=== PATIENT | male | born 1995 | race Caucasian/White ===

== ENCOUNTER 2021-04-05 11:42 | Emergency (ER) | payer BC ==
[~2021-04-05] VITALS: Ht 157 cm; Wt 63.5 kg
[2021-04-05 11:43] VITALS: BP 123/85
[2021-04-05 12:07] LABS: BILIRUBIN,URINE NEGATIVE (NEGATIVE); CLARITY,URINE CLEAR; COLOR,URINE YELLOW; GLUCOSE, URINE (UA) NEGATIVE (NEGATIVE); KETONES,URINE NEGATIVE (NEGATIVE); LEUKOCYTE ESTERASE ,URINE NEGATIVE (NEGATIVE); NITRITE,URINE NEGATIVE (NEGATIVE); PH,URINE 7.5 (5-9); PROTEIN,URINE NEGATIVE (NEGATIVE)
--- NOTE | 2021-04-05 12:16 | ED Psychosocial ---
General Chief Complaint: Psych/Social Disorder Stated Complaint: ANXIETY Nursing Triage Note: Pt to ED via EMS for anxiety. Pt reports being discharged from [facility] yesterday. Pt reports anxiety worsened while there. Pt denies being a threat to self or others. Source: patient Exam Limitations: no limitations History of Present Illness Date Seen by Provider: April 05, 2021 Time Seen by Provider: 11:43 Initial Comments This is a well appearing 25 yo male who presented via [facility] with c/o of anxiety due to concerns he may be experiencing an adverse reaction to new medication. States that he has been at [facility] for the past week and was released yesterday. He was placed on Olanzapine TID and Atarax PRN. He believes that he is having an adverse reaction to the olanzapine because he "feels worse" mentally. States that prior to entering the facility he was taking Prozac and was taken off of it during his treatment.However, he believe he would feel much better with Prozac over his new medication. He does admit that his Atarax is helpful with his anxiety, however today he experienced a severe episode. States that he is staying with his grandparents and there is quite a bit of discord within the family at this time causing him to have increased stress. Denies suicidal or homicidal ideation. He was to follow-up with his primary care provider today, however he presented to the ER instead. He currently has no physical complaints. Allergies and Home Medications Allergies Coded Allergies: No Known Drug Allergies (Unverified Allergy, Mild, 11/11/09) Home Medications Fluoxetine HCl 20 Mg Capsule, 20 MG PO DAILY Prescribed by: ELIZABETH PENA on 04/05/21 1248 Patient Home Medication List Home Medication List Reviewed: Yes Review of Systems Constitutional: no symptoms reported EENTM: no symptoms reported Respiratory: no symptoms reported Cardiovascular: no symptoms reported Gastrointestinal: no symptoms reported Genitourinary: no symptoms reported Musculoskeletal: no symptoms reported Skin: no symptoms reported Psychiatric/Neurological: See HPI Past Gxfbejf-Ihkrnw-Qivvsy Hx Patient Social History Alcohol Use: Denies Use Type Used: Smokeless Tobacco 2nd Hand Smoke Exposure: No Recent Infectious Disease Expo: No Recent Hopitalizations: No (EARS TUBES AGE 3, ) Past Medical History Surgeries: Yes (PENIS REPAIR, wisdom teeth) Appendectomy, Ear Surgery Respiratory: No Cardiac: No Neurological: No Reproductive Disorders: No Genitourinary: No Gastrointestinal: No Musculoskeletal: No Endocrine: No Cancer: No Psychosocial: Yes ADD/ADHD, Anxiety, Bipolar, Depression Blood Disorders: No Physical Exam Vital Signs - First Documented 04/05/21 11:43 Temp 36.3 Pulse 84 Resp 25 B/P (MAP) 123/85 (98) Pulse Ox 100 O2 Delivery Room Air Capillary Refill : Less Than 3 Seconds Height, Weight, BMI Height: 5'2" Weight: 120lbs. oz. [id number]; 25.00 BMI Method: General Appearance: WD/WN, no apparent distress HEENT: PERRL/EOMI, normal ENT inspection, pharynx normal Neck: full range of motion, normal inspection Respiratory: lungs clear, normal breath sounds Cardiovascular: regular rate, rhythm, no murmur Gastrointestinal: normal bowel sounds, non tender, soft Neurologic/Psychiatric: no motor/sensory deficits, alert, normal mood/affect, oriented x 3 Appearance/Memory: appropriate appearance, appropriate insight, neat, no memory impairment Behavior/Eye Contact: cooperative, good eye contact, normal speech Thoughts/Hallucinations: normal thought pattern, no apparent hallucination; No delusions, No flight of ideas Skin: normal color, warm/dry Progress/Results/Core Measures Results/Orders Lab Results Laboratory Tests Test 04/05/21 12:00 04/05/21 12:30 Range/Units Urine Color YELLOW Urine Clarity CLEAR Urine pH 7.5 5-9 Urine Specific [place] 1.010 L 1.016-1.022 Urine Protein NEGATIVE NEGATIVE Urine Glucose (UA) NEGATIVE NEGATIVE Urine Ketones NEGATIVE NEGATIVE Urine Nitrite NEGATIVE NEGATIVE Urine Bilirubin NEGATIVE NEGATIVE Urine Urobilinogen 0.2 < = 1.0 MG/DL Urine Leukocyte Esterase NEGATIVE NEGATIVE Urine RBC (Auto) NEGATIVE NEGATIVE Urine RBC NONE /HPF Urine WBC NONE /HPF Urine Squamous Epithelial Cells RARE /HPF Urine Crystals NONE /LPF Urine Bacteria NEGATIVE /HPF Urine Casts NONE /LPF Urine Mucus NEGATIVE /LPF Urine Culture Indicated NO Urine Opiates Screen NEGATIVE NEGATIVE Urine Oxycodone Screen NEGATIVE NEGATIVE Urine Methadone Screen NEGATIVE NEGATIVE Urine Propoxyphene Screen NEGATIVE NEGATIVE Urine Barbiturates Screen NEGATIVE NEGATIVE Ur Tricyclic Antidepressants Screen NEGATIVE NEGATIVE Urine Phencyclidine Screen NEGATIVE NEGATIVE Urine Amphetamines Screen NEGATIVE NEGATIVE Urine Methamphetamines Screen NEGATIVE NEGATIVE Urine Benzodiazepines Screen NEGATIVE NEGATIVE Urine Cocaine Screen NEGATIVE NEGATIVE Urine Cannabinoids Screen NEGATIVE NEGATIVE Serum Alcohol < 10 <10 MG/DL My Orders Orders - ELIZABETH PENA DREDGE CAPTAIN Ua Culture If Indicated (04/05/21 11:55) Drug Screen Stat (Urine) (04/05/21 11:55) Alcohol (04/05/21 11:55) Vital Signs/I&O Blood Pressure Mean: 98 Progress Progress Note : Progress Note Patient examined and in no acute distress. He is sitting up, talking appropriately with staff. Does not appear overly anxious. Discussed allowing me to contact Santiago as he was just discharged yesterday to review medication adjustments, he is agreeable to this. Called [facility] unit and spoke to Dr. Moore. States that patient was diagnosed with bipolar and was noted to have increased anxiety with quite a bit of stressors at home. States that adding Prozac to his current medication regimen would be appropriate and likely help him with his current symptoms. Additionally, I called his primary care provider office at [facility] in [place] to reschedule his appointment. However his had already rescheduled the appointment for him and is within the next 2 weeks. Discussed with him that I would be willing to write him a prescription for Prozac-2 weeks worth until he can follow-up with his primary care provider. He is agreeable with this plan. Reviewed discharge plan of care and he is agreeable with plan. At time of discharge no questions or concerns voiced. States that he is feeling much improved after getting help adjusting his medications. Departure Impression Primary Impression: Anxiety Disposition: 01 HOME, SELF-CARE Condition: Improved Departure-Patient Inst. Decision time for Depature: 12:43 Referrals: DAVID HOU DO (PCP/Family) Primary Care Physician Patient Instructions: Anxiety, Adult (DC) Add. Discharge Instructions: Plan: 1. Follow up with Dr. Parada as scheduled. 2. Take Prozac 20mg per day. 3. Continue your Atarax TID as needed for anxiety. 4. Return for any new or worsening symptoms. All discharge instructions reviewed with patient and/or family. Voiced understanding. Scripts Fluoxetine HCl (Prozac) 20 Mg Capsule 20 MG PO DAILY for 14 Days, #14 CAP 0 Refills Prov: ELIZABETH PENA DREDGE CAPTAIN 04/05/21 ELIZABETH PENA DREDGE CAPTAIN April 05, 2021 12:16
[2021-04-05 12:18] LABS: AMPHETAMINE SCREEN, URINE NEGATIVE (NEGATIVE); BARBITURATE SCREEN URINE NEGATIVE (NEGATIVE); BENZODIAZEPINES SCREEN URINE NEGATIVE (NEGATIVE); CANNABINOID SCREEN, URINE NEGATIVE (NEGATIVE); COCAINE SCREEN URINE NEGATIVE (NEGATIVE); METHADONE STAT NEGATIVE (NEGATIVE); METHAMPHETAMINE SCREEN URINE S NEGATIVE (NEGATIVE); OPIATE SCREEN URINE NEGATIVE (NEGATIVE); OXYCODONE STAT NEGATIVE (NEGATIVE); PROPOXYPHENE STAT NEGATIVE (NEGATIVE); TRICYCLIC ANTIDEPRESSANTS SCRE NEGATIVE (NEGATIVE)
[2021-04-05 12:35] LABS: BACTERIA,URINE NEGATIVE /HPF; SQUAMOUS EPITHELIAL CELL,UR RARE /HPF
[2021-04-05] MEDS ORDERED: FLUO20CA42 PO (12:48)
== END 2021-04-05 12:54 | disposition home or self-care (01) ==
LOC: EDUNIT# 11:42 → ER 11:44
DX: F41.9 Anxiety disorder, unspecified (principal); F31.9 Bipolar disorder, unspecified
CPT/HCPCS: 80306; 81000; 99284; G0480; 36415; 80320